=== PATIENT | male | born 1935 | race Caucasian/White ===

== ENCOUNTER 2017-09-06 11:47 | Emergency (ER) | payer MEDICARE ==
[2017-09-06 12:14] VITALS: BP 161/86
--- NOTE | 2017-09-20 17:22 | UC ---
Shortness of Breath HPI - HPI Summary HPI Summary: 82 year old male presents with complains of severe shortness of breath and cough. - History of Current Complaint Chief Complaint: UCRespiratory Stated Complaint: CHEST CONGESTION Time Seen by Provider: 09/06/17 12:15 Hx Obtained From: Patient Onset/Duration: Sudden Onset Timing: Constant Current Severity: Severe Dyspnea At: Exertion Aggrevating Factors: Deep Breaths - Allergy/Home Medications Allergies/Adverse Reactions: Allergies Allergy/AdvReac Type Severity Reaction Status Date / Time No Known Allergies Allergy Verified 09/06/17 12:03 Home Medications: Home Medications Furosemide TAB* [Lasix TAB*] 1 tab DAILY 09/06/17 [History Confirmed 09/06/17] Rivaroxaban TAB(*) [Xarelto 10 mg (*)] 1 tab DAILY 09/06/17 [History Confirmed 09/06/17] Simvastatin [Zocor 5 MG-] 5 mg BEDTIME 09/06/17 [History Confirmed 09/06/17] Sotalol TAB* [Betapace 80 MG TAB*] 80 mg BID 09/06/17 [History Confirmed ] PMH/Surg Hx/FS Hx/Imm Hx Previously Healthy: Yes - Surgical History Surgical History: None - Family History Known Family History: Positive: None - Social History Alcohol Use: None Substance Use Type: None Smoking Status (MU): Never Smoked Tobacco Review of Systems Constitutional: Negative Skin: Negative Eyes: Negative ENT: Negative Respiratory: Shortness Of Breath, Cough Cardiovascular: Negative Gastrointestinal: Negative Genitourinary: Negative Motor: Negative Neurovascular: Negative Musculoskeletal: Negative Neurological: Negative Psychological: Negative All Other Systems Reviewed And Are Negative: Yes Physical Exam Triage Information Reviewed: Yes Vital Signs: Initial Vital Signs Temp 36.6 C 09/06/17 12:08 Pulse 77 09/06/17 12:08 Resp 30 09/06/17 12:08 BP 161/86 09/06/17 12:08 Pulse Ox 88 09/06/17 12:08 Vital Signs Reviewed: Yes Eye Exam: Normal ENT Exam: Normal Dental Exam: Normal Neck exam: Normal Neck: Positive: 1 Respiratory: Positive: Rhonchi, Wheezing Cardiovascular Exam: Normal Abdominal Exam: Normal Musculoskeletal Exam: Normal Neurological Exam: Normal Psychological Exam: Normal Skin Exam: Normal Shortness of Breath Dx - Differential Dx/Diagnosis Provider Diagnoses: sob breath. wheezing. cough Discharge - Discharge Plan Condition: Stable Disposition: OTHER Discharge Disposition Comment: patient suggested to go to the er Patient Education Materials: Dyspnea (ED), Acute Cough (ED) Referrals: Gael Rausch MD [Primary Care Provider] - Additional Instructions: patient suggested to go to the er.
== END 2017-09-06 12:27 ==
LOC: UCCORT 11:47
DX: R06.02 Shortness of breath (principal); R06.2 Wheezing; R05 Cough
CPT/HCPCS: 99202; G0463